=== PATIENT | female | born 1970 | race Caucasian/White ===

== ENCOUNTER 2018-04-06 06:31 | Emergency (ER) | payer SELFPAY ==
[~2018-04-06] VITALS: Ht 160 cm; Wt 91.0 kg
[2018-04-06] MEDS ORDERED: SODIUM CHLORIDE 0.9% 1,000 ML IV ONE (07:57)
[2018-04-06 08:39] LABS: BASOPHILS % 0.3 % (0.0-2.0); EOSINOPHILS % 0.2 % (0.0-5.0); HEMATOCRIT. 42.7 % (36.0-48.0); HEMOGLOBIN. 14.2 g/dL (12.0-16.0); MEAN CORPUSCULAR HEMOGLOBIN 29.6 pg (28.0-32.0); MEAN CORPUSCULAR VOLUME 89.2 fL (81.0-99.0); MEAN PLATELET VOLUME 9.4 fl (7.4-10.4); NEUTROPHILS % 87.5 % (40.0-76.0); PLATELET 225 x1000/uL (130-400); RED BLOOD CELL COUNT 4.79 mill/uL (4.2-5.4); RED CELL DISTRIBUTION WIDTH 14.3 % (11.6-14.6)
[2018-04-06 08:45] LABS: CHLORIDE 113 mEq/L (98-107)
[2018-04-06 08:46] LABS: PROTHROMBIN TIME 9.8 sec (9.1-11.1)
[2018-04-06 09:39] LABS: CLARITY URINE CLOUDY (CLEAR); COLOR URINE AMBER (YELLOW); KETONES URINE TRACE (NEGATIVE); LEUKOCYTE ESTERASE URINE 1+ (NEGATIVE); NITRITE URINE NEGATIVE (NEGATIVE); OCCULT BLOOD URINE NEGATIVE (NEGATIVE); PH URINE 5.5 (4.5-8.0); PROTEIN URINE NEGATIVE (NEGATIVE); SPECIFIC GRAVITY URINE 1.025 (1.005-1.030)
[2018-04-06] MEDS ORDERED: IOHEXOL-350 100 ML BOTTLE ONE (10:49)
[2018-04-06 11:44] VITALS: BP 110/64
== END 2018-04-06 11:51 | disposition home or self-care (01) ==
LOC: ER 06:31
DX: K64.8 Other hemorrhoids (principal); R10.0 Acute abdomen
CPT/HCPCS: 36415; 74177; 80053; 81003; 81025; 83690; 85025; 85610; 99284; J7030; Q9967